=== PATIENT | female | born 1955 | race Caucasian/White ===

== ENCOUNTER 2024-01-16 10:45 | Day surgery (SDC) | payer SELFPAY ==
[2024-01-16 11:10] VITALS: BP 128/78; PULSE 79; RESP 16; TEMP 36.6; O2SAT 99
--- NOTE | 2024-01-16 11:46 | HP.PCM_ITS ---
[facility] - General General Date of Service: 01/16/24 Chief Complaint: Bilateral torn earlobes from piercings HPI Narrative CHRISTEN GRIGGS, is a 68 F who presents with bilateral torn earlobes from previous piercings. She presents for bilateral earlobe repair. [facility] Medical History (Updated 01/16/24 @ 11:[address] Priya Carmona MD) Bone fracture Cancer History of blood transfusion Osteopenia Home Medications denosumab 60 mg/mL subcutaneous syringe (Prolia) 60 mg subcut [id number] 03/26/23 [History Last Taken Unknown] ibuprofen 200 mg capsule (Motrin IB) 200 mg PO Q6H PRN 03/26/23 [History Last Taken Unknown] multivitamin (Daily Multi-Vitamin tablet) 1 tab PO DAILY 03/26/23 [History Last Taken Unknown] Allergy/AdvReac Type Severity Reaction Status Date / Time pseudoephedrine Allergy Mild Itching Verified 11/12/23 13:51 [From Sudafed] meperidine [From Demerol] AdvReac Vomiting Verified 01/16/24 11:09 Family History (Updated 03/26/23 @ 13:06 by Terri Estrella) Father Alcoholism Diabetes Brother Alcoholism Epilepsy Mother Cervical cancer Ovarian cancer Grandmother Diabetes Surgical History (Updated 03/26/23 @ 13:04 by Terri Estrella) History of total hysterectomy Social History (Updated 03/26/23 @ 13:06 by Terri Estrella) Smoking Status: Former smoker Vital Signs Vital Signs Vital Signs: 01/16/24 11:10 01/16/24 11:10 Temperature 97.8 F Temperature Source Temporal Pulse Rate 79 Respiratory Rate 16 Respiratory Pattern Normal Blood Pressure 128/78 H Blood Pressure Mean 94 Blood Pressure Source Monitor Blood Pressure Position Semi-Fowlers Blood Pressure Location Left Arm Pulse Ox 99 Oxygen Delivery Method Room Air Weight Weight: 116 lb 13.52 oz Body Mass Index (BMI) 20.0 Physical Exam Narrative She has elongated holes in her bilateral earlobes from previous tears caused by earrings. Const alert, oriented x3, no apparent distress, average body habitus and well nourished General Appearance: cooperative and well developed Orientation / Consciousness: oriented to person, oriented to place and oriented to time HEENT head/scalp atraumatic, external ears normal and external nose normal Head and Scalp: normal to inspection, normocephalic, atraumatic and abrasion Face and Sinus: normal facial exam and face symmetric Nose: external nose normal External Ear: external ears normal External Auditory Canal: EAC's normal Mouth: lips normal Eyes PERRL, EOMs intact bilaterally and conjunctivae normal General Eye: normal appearance of both eyes Periorbital: periorbital findings normal Eyelid: eyelids normal Conjunctiva: conjunctiva normal Pupil: PERRL Neck full ROM Lymph Lymphatic: no lymphadenopathy noted Chest inspection of chest normal Breast/Axilla Palpation: no axillary lymphadenopathy Resp normal respiratory effort, normal air movement and clear to auscultation bilaterally Auscultation: clear to auscultation bilaterally Cardio regular rate, regular rhythm, S1 normal heart sound, S2 normal heart sound and no murmurs Rate: regular rate Rhythm: regular rhythm GI soft to palpation and non-tender Extremity normal to inspection and full ROM General Extremity: normal exam except as noted Skin General Skin Exam: turgor normal Neuro oriented x3, CN's II-XII intact bilaterally, moves all extremities, no focal motor deficits and no sensory deficits noted Sensorium / Orientation: awake, alert, oriented to person, oriented to place and oriented to time Speech: speech normal Gait (Neuro): normal gait Psych mental status grossly normal Attention / Concentration: concentration grossly intact Memory / Cognition: memory grossly intact Assessment & Plan Assessment/Plan (1) Torn earlobe: (2) Encounter for cosmetic surgery: PLAN: Plan for earlobe repair bilaterally
[2024-01-16 12:00] VITALS: BP 122/85; BP 135/82; O2SAT 100; O2SAT 97; O2SAT 98; O2SAT 99
[2024-01-16] MEDS: Lidocaine 1% /Epi 1:100 9 ML, Sodium Bicarbonate 1 MEQ OPERA.SITE (12:03)
--- NOTE | 2024-01-16 13:08 | PCM.DC ---
Discharge Instructions Dressing / Incision Additional Dressing/Incision Instructions:: Try to keep the Steri-Strips dry. Leave them intact until seen. Keep your head slightly elevated (recliner position) for the next 2 nights to help reduce bleeding and swelling. Take the oral antibiotic (Keflex) 2 times a day until finished. Follow Up Care Please Follow Up With: Priya Carmona MD When: In 1 to 2 weeks. Test Results: Test results from this visit will be discussed in further detail at your follow-up appointment, if applicable. Discharge Plan Admission Attending Provider: Priya Carmona Primary Care Provider: Usha Garcia Discharge Orders/Prescriptions Prescriptions: New cephalexin 500 mg capsule 500 mg PO BID 5 Days Qty: 10 0RF No Action multivitamin [Daily Multi-Vitamin] Tablet 1 tab PO DAILY Prolia 60 mg/mL syringe 60 mg subcut [id number] ibuprofen [Motrin IB] 200 mg capsule 200 mg PO Q6H PRN Referrals / Follow Up: Usha Garcia, [employer] [Primary Care Provider] - Disposition Disposition (needs filled in before D/C Order can be placed): Home, Self Care
--- NOTE | 2024-01-16 13:10 | PCM.OPRPT ---
Problems Associated Problem List Diagnoses (1) Encounter for cosmetic surgery: (2) Torn earlobe: Report of Operation Date of Procedure: 01/16/24 Pre-Operative Diagnosis: Bilateral torn earlobes from previous piercings. Post-Operative Diagnosis: Same Surgery/Procedure Performed:: Bilateral earlobe repair (2.0 cm, 2.0 cm) with intermediate closure Surgeon: Priya Carmona Type of Anesthesia: Local Estimated Blood Loss (mL): Minimal Description of Procedure: The patient presents with a history of previous ear piercings with tearing of the earlobe. She presents for repair of these bilateral earlobes. The patient is brought to the operating room and placed on the operating room table in the supine position. The bilateral ears are prepped and draped in the usual sterile fashion. 1% Xylocaine with epinephrine is used for local anesthetic of both ears. Following this, the right anterior portion of the earlobe hole and the posterior part are incised and excised as a doughnut-shaped excision. Hemostasis is controlled with cautery. The wound is then closed in layers with 0 Vicryl suture used in the subcutaneous tissue. The anterior and posterior aspects of the earlobe skin edges are repaired with a running 5-0 plain gut suture. The identical procedure was performed on the opposite side. Dermabond and Steri-Strips are placed on the ears. She tolerated the procedure well and was taken to the recovery area in an awake and stable condition. Needle and sponge counts are correct. Complications None Admit VTE Documentation VTE Mechan Device Prophylaxis: None Reason prophylaxis not ordered:: Treatment Not Indicated
== END 2024-01-16 13:39 | disposition home or self-care (01) ==
LOC: SDC 10:54 → AC 10:55
PROVIDERS: PCP Nurse Practitioner Family; Referring Provider Plastic Surgery; Visit Provider Plastic Surgery
PROC: (CPT 12052; principal; 2024-01-16 12:00)
DX: Z41.1 Encounter for cosmetic surgery (principal); Z87.891 Personal history of nicotine dependence; Z90.710 Acquired absence of both cervix and uterus
CPT/HCPCS: 12052